=== PATIENT | male | born 1965 | race Caucasian/White ===

== ENCOUNTER 2019-02-27 20:25 | Emergency (ER) | payer BC ==
[~2019-02-27] VITALS: Ht 182.9 cm; Wt 124.7 kg
[~2019-02-27 20:25] MED LIST: ACIDOPHILUS1 EACH PO; HYDROCHLOROTHIA50 MG PO; LISINOPRIL40 MG PO; METOPROLOL SUCC50 MG PO; NORVASC5 MG PO
[2019-02-27 20:53] LABS: ABSOLUTE NEUTROPHILS 4.2 thou/uL (1.4-8.2); BASOPHILS 0.4 % (0.0-2.0); EOSINOPHILS 2.7 % (0.0-3.0); LYMPHOCYTES 22.7 % (24.0-44.0); MCH 29.6 pg (26.0-34.0); MCHC 34.8 g/dL (28.0-37.0); MCV 85.2 fL (80.0-100.0); MONOCYTES 6.7 % (1.0-8.0); PLATELET COUNT 153 thou/uL (150-400); POLYS 67.5 % (36.0-66.0); RBC 5.41 mil/uL (4.50-6.00); RDW 13.6 % (10.5-14.5); WBC 6.2 thou/uL (4.0-11.0)
[2019-02-27 21:09] LABS: ANION GAP 9 mmol/L (7-16); CALCIUM 9.2 mg/dL (8.5-10.1); CHLORIDE 103 mmol/L (98-107); CO2 27 mmol/L (21-32); CREATININE 1.2 mg/dL (0.7-1.3); GLUCOSE 162 mg/dL (74-106); POTASSIUM 3.7 mmol/L (3.5-5.1); SODIUM 139 mmol/L (136-145); TROPONIN-I <0.06 ng/mL (<0.06)
[2019-02-27 21:10] LABS: BUN 18 mg/dL (7-18)
[2019-02-27] MEDS ORDERED: PAXIL10 MG PO (21:11)
[2019-02-27] MEDS ORDERED: FLECAINIDE ACET50 M1 PO (21:11)
[2019-02-27] MEDS ORDERED: NORVASC10 MG PO (21:11)
[2019-02-27] MEDS ORDERED: LIPITOR10 MG PO (21:12)
[2019-02-27] MEDS ORDERED: XARELTO10 M1 PO (21:12)
[2019-02-27] MEDS ORDERED: LOPRESSOR25 PO (21:13)
[2019-02-27] MEDS ORDERED: SPIRONOLACTONE25 M1 PO (21:56)
[2019-02-27 22:11] VITALS: BP 173/97
--- NOTE | 2019-02-28 17:07 | EKG ---
[facility] [employer] [place] [address] ELECTROCARDIOGRAM REPORT Name: JARED REYES Brittani Room #: DEP [facility]ENTERShaka[facility] [id number] ������������������ Admission: 02/27/19 ������������������ Attend Phys: Discharge: 02/27/19 ������������������ Date of : 61 Report #: [id number] ����������������������������������������������������������������� [id number] THIS REPORT FOR: //name// [facility] ED Test Date: 2019-02-27 Test Time: 20:38:37 Pat Name: JARED REYES Department: Room: Gender: M Sql Bi Developer: Gabe MENDOZA : 1965 Requested By: Ronaldo Booker Order Number: [id number] MD: Dakota Hunter Measurements Intervals [place] Rate: 72 P: 70 IA: 142 QRS: -16 QRSD: 86 T: 69 QT: 381 QTc: 417 Interpretive Statements Sinus rhythm Nonspecific ST and T wave abnormality Baseline wander in lead(s) V2 No previous ECG available for comparison Electronically Signed On 02-28-2019 17:07:08 CDT by Dakota Hunter [email or web address] ��������������������������������������������� <ELECTRONICALLY SIGNED> ���������������������������������������� By: Dakota Hunter MD, [facility] ��������������������������������������������� 02/28/19 1707 37 37 Dakota Hunter MD, FACC /EPI
== END 2019-02-27 22:11 | disposition home or self-care (01) ==
LOC: ER 20:25
PROVIDERS: Emergency Medicine
DX: I10 Essential (primary) hypertension (principal); I48.91 Unspecified atrial fibrillation; Z90.89 Acquired absence of other organs